=== PATIENT | female | born 1965 | race Caucasian/White ===

== ENCOUNTER 2020-10-09 13:10 | Emergency (ER) | payer BC ==
[~2020-10-09] VITALS: Ht 165.1 cm; Wt 56.7 kg
[2020-10-09] MEDS ORDERED: PROC25S PR (15:36)
[2020-10-09 16:15] LABS: Calcium, Ionized (POC) 1.03 mmol/L (1.10-1.46); Chloride (POC) 99 mmol/L (98-108); Creatinine (POC) 0.4 mg/dL (0.6-1.0); Glucose (ISTAT POC) 98 mg/dL (70-99); Hemoglobin (POC) 12.9 g/dL (12.0-16.0); Potassium (POC) 3.1 mmol/L (3.5-5.5); Sodium (POC) 137 mmol/L (135-148); Total CO2 (POC) 23 mmol/L (21-32)
[2020-10-09] MEDS ORDERED: ACYC800 PO (16:19)
[2020-10-09] MEDS ORDERED: BELSOMRA10 MG PO (16:20)
[2020-10-09] MEDS ORDERED: CALCIUM 600 +1 EA11 PO (16:21)
[2020-10-09] MEDS ORDERED: CROM10OPSO PO (16:21)
[2020-10-09] MEDS ORDERED: BIOTIN1 MG PO (16:22)
[2020-10-09] MEDS ORDERED: LIDO5TO TOP (16:22)
[2020-10-09] MEDS ORDERED: MAGCHL64ER PO (16:23)
[2020-10-09] MEDS ORDERED: MELATONIN5 M1 PO (16:23)
[2020-10-09] MEDS ORDERED: MOTEGRITY1 MG PO (16:24)
[2020-10-09] MEDS ORDERED: Naltrexone HCl50 MG PO (16:24)
[2020-10-09] MEDS ORDERED: OMEP20ER PO (16:25)
[2020-10-09] MEDS ORDERED: NORT10 PO (16:25)
[2020-10-09] MEDS ORDERED: PALMITOYLETHANOLAMID PO (16:27)
[2020-10-09] MEDS ORDERED: [UNRECOGNIZED DRUG - OTHER] PO (16:27)
[2020-10-09] MEDS ORDERED: Seroquel25 MG PO (16:28)
[2020-10-09] MEDS ORDERED: TIZA4 PO (16:29)
[2020-10-09] MEDS ORDERED: Triamcinolone A15 G2 TOP (16:30)
[2020-10-09] MEDS ORDERED: 1/2 NS 250ml250 ML (16:30)
[2020-10-09] MEDS ORDERED: VENL37.5ER PO (16:31)
[2020-10-09] MEDS ORDERED: Acerola C500 MG PO (16:32)
[2020-10-09] MEDS ORDERED: ZINC15 PO (16:32)
[2020-10-09] MEDS ORDERED: MULVITA PO (16:32)
== END 2020-10-09 18:05 | disposition home or self-care (01) ==
LOC: ER 13:10
PROVIDERS: Physician Assistant
DX: U07.1 COVID-19 (principal); F17.290 Nicotine dependence, other tobacco product, uncomplicated; F12.90 Cannabis use, unspecified, uncomplicated; Z88.5 Allergy status to narcotic agent; Z88.6 Allergy status to analgesic agent
CPT/HCPCS: 36415; 80047; 85014; 96374; 96375; 99284-25; A9270; J1170; J1630; J2405; J7030

== ENCOUNTER 2020-10-15 04:20 | Emergency (ER) | payer BC ==
[~2020-10-15] VITALS: Ht 165.1 cm; Wt 54.4 kg
[~2020-10-15 04:20] MED LIST: 1/2 NS 250ml250 ML; ACYC800 PO; Acerola C500 MG PO; BELSOMRA10 MG PO; BIOTIN1 MG PO; CALCIUM 600 +1 EA11 PO; CROM10OPSO PO; LIDO5TO TOP; MAGCHL64ER PO; MELATONIN5 M1 PO; MOTEGRITY1 MG PO; MULVITA PO; NORT10 PO; Naltrexone HCl50 MG PO; OMEP20ER PO; PALMITOYLETHANOLAMID PO; PROC25S PR; Seroquel25 MG PO; TIZA4 PO; Triamcinolone A15 G2 TOP; VENL37.5ER PO; ZINC15 PO; [UNRECOGNIZED DRUG - OTHER] PO
[2020-10-15] MEDS ORDERED: ONDA4ODT MM (06:23)
== END 2020-10-15 07:20 | disposition home or self-care (01) ==
LOC: ER 04:20
DX: U07.1 COVID-19 (principal); F17.290 Nicotine dependence, other tobacco product, uncomplicated; F12.90 Cannabis use, unspecified, uncomplicated; Z88.6 Allergy status to analgesic agent; Z88.5 Allergy status to narcotic agent
CPT/HCPCS: 96372-59; 99284-25; A9270; J1200; J1630